=== PATIENT | male | born 1955 | race Caucasian/White ===

== ENCOUNTER 2017-10-05 11:08 | Day surgery (SDC) | payer OTHER ==
[~2017-10-05 11:08] MED LIST: Buffered Lidocaine 0.9% SYRIN* 5 ML/SYR SYRINGE INTRADERM ONE; DiMENhydriNATE IV* 50 MG/ML VIAL IV PUSH PRN; Famotidine IV* 10 MG/ML 2 ML (20 mg) IV ONE; Morphine INJ* 2 MG/ML 1 ML CARPUJECT IV PRN; Naloxone* 0.4 MG/ML 1 ML VIAL IV PRN; PROCHLORPERAZINE INJ 5 MG/ML 2 ML VIAL IV PRN; fentaNYL* 50 MCG/ML 2 ML VIAL (100 MCG VIAL) IV PRN; oxyCODONE/Acetamin 5/325 MG* TAB PO PRN
[2017-10-05] MEDS ORDERED: Famotidine IV* 10 MG/ML 2 ML (20 mg) ONE (11:31)
[2017-10-05] MEDS ORDERED: fentaNYL* 50 MCG/ML 2 ML VIAL (100 MCG VIAL) ONE ×2 (11:58→13:49)
[2017-10-05] MEDS ORDERED: KETAMINE HCL* 50 MG/ML 10 ML VIAL ONE (11:58)
[2017-10-05] MEDS ORDERED: Atracurium* 10 MG/ML 10 ML VIAL ONE (11:58)
[2017-10-05] MEDS ORDERED: Midazolam* 1 MG/ML 10 ML VIAL (10 MG) ONE (11:58)
[2017-10-05] MEDS ORDERED: Oxymetazoline 0.05% NASAL SPR* 15 ML BTL ONE (13:07)
[2017-10-05] MEDS ORDERED: Triamcinolone Acetonide* 40 MG/ML 1 ML VIAL ONE (13:08)
[2017-10-05] MEDS ORDERED: Gelfoam 12-7 ADSORBABL SPONGE* 1 EA SPONGE ONE ×2 (13:08→14:45)
[2017-10-05] MEDS ORDERED: Gelatin ADSORBABLE (OPHTH)* OPHTH.FILM ONE ×2 (13:08→14:45)
[2017-10-05] MEDS ORDERED: Lidocaine 2% EPI 1:200000 MPF* 20 ML VIAL ONE (13:21)
[2017-10-05] MEDS ORDERED: hydrALAZINE IV* 20 MG/ML VIAL ONE (14:04)
[2017-10-05] MEDS ORDERED: Dexamethasone IV* 4 MG/ML 1 ML (4 MG) ONE (14:04)
[2017-10-05] MEDS ORDERED: Ondansetron INJ* 2 MG/ML VIAL ONE (14:04)
[2017-10-05] MEDS ORDERED: Neostigmine Methylsulfate* 2 MG/2 ML SYRINGE ONE (14:04)
[2017-10-05] MEDS ORDERED: Propofol* 10 MG/ML 20 ML BTL IV PUSH ONE (14:04)
[2017-10-05] MEDS ORDERED: Glycopyrrolate IV* 0.2 MG/ML 1 ML VIAL ONE (14:04)
[2017-10-05] MEDS ORDERED: Labetalol IV* 5 MG/ML 20 ML VIAL ONE (14:05)
[2017-10-05] MEDS ORDERED: Lidocaine 2% PF * 5 ML VIAL ONE (14:08)
[2017-10-05 16:37] VITALS: BP 119/74
--- NOTE | 2017-10-06 15:51 | OP ---
DATE OF OPERATION: 10/05/17 - [facility] DATE OF : 57 SURGEON: Margarito Cortez MD ANESTHESIOLOGIST: Fahad Hummel MD ANESTHESIA: General PRE-OP DIAGNOSIS: Chronic sinusitis, pansinusitis. POST-OP DIAGNOSIS: Chronic sinusitis, pansinusitis. OPERATIVE PROCEDURE: Bilateral videoendoscopic maxillary antrostomy, removal of fungal tissue from both sinuses, right worse than the left. Nasal polyposis and anterior and posterior ethmoidectomy and then bilateral frontal duct exploration with dilatation and irrigation. BRIEF HISTORY: This 62-year-old gentleman presenting with chronic sinusitis; CT finding shows extensive opacification of pansinusitis, expansile, possible fungal etiology. DESCRIPTION OF PROCEDURE: The patient was taken to the operating room, general anesthetic, the patient was intubated. Nose was decongested with Afrin placed pledgets and 2% lidocaine with epinephrine was then infiltrated in the mucosa on the onset of process, middle turbinate and lateral nasal wall. We had initially turned our attention to the right side, large polyp was noted and was micro-shaved away. The uncinate process was then identified and micro- shaved away. The antrum was then enlarged significantly and then copious amounts of thick what appeared to be fungal elements was removed, what appeared to be fungal ball completely encasing the antrum. Once enough resection was carried out, I turned the attention to the ethmoidal bulla. This was resected out, copious polypoidal material was noted coursing through the ground lamella posteriorly towards the skull base and then laterally towards lamina papyracea. The nasal frontal duct was then examined, a wire was passed through and the balloon was used to dilate the area. Copious irrigation of the antrum of the frontal sinus was carried out. I then packed the right maxillary sinus with iodoform gauze. I turned my attention to the left side, the uncinate process was removed, micro - shaved, the antrum was enlarged. Thick mucoid material was suctioned from the antrum. The ethmoidal bulla was then resected and laterally the patient was having extensive polyps. These were removed until the lamina papyracea was identified into nasofrontal duct. I did not identify the osteoma but a balloon was passed through and enlarged at the nasal frontal duct. Copious irrigation of this area was carried out. Then we turned our attention to the posterior ethmoid resecting out the ground lamella and laterally towards the lamina papyracea and skull base posteriorly. The area was packed with Gelfoam at the space between the middle turbinate and lateral nasal wall, same was done on the right side. The patient then awakened, extubated, sent to recovery room in stable condition. Estimated blood loss was approximately 100 cc. [id number] #: [id number] [facility] CENTERJose Luis
== END 2017-10-05 16:48 | disposition home or self-care (01) ==
LOC: OR 11:08
PROVIDERS: ATTEND Otolaryngology
DX: J32.4 Chronic pansinusitis (principal); D16.4 Benign neoplasm of bones of skull and face; J33.9 Nasal polyp, unspecified
CPT/HCPCS: 87070; 87073; 87076; 87077; 87184; 87186; 87205; 88305; 88312; A9270-GY; J0360; J1100; J2250; J2405; J2704; J3010; J3301